=== PATIENT | male | born 1985 | race Caucasian/White ===

== ENCOUNTER 2021-07-04 00:31 | Emergency (ER) | payer OTHER ==
[~2021-07-04 00:31] MED LIST: NAPROSYN500 MG PO; NORFLEX 100 MG100 MG PO; PREDNISONE 50 M50 MG PO
[2021-07-04 01:57] LABS: BUN/CREATININE RATIO 18 (0-10)
[2021-07-04 02:12] LABS: HEMOGLOBIN 15.4 gm/dl (14.0-17.5); RED BLOOD COUNT 5.04 M/UL (4.20-5.50); WHITE BLOOD COUNT 13.9 K/UL (4.5-11.0)
== END 2021-07-04 03:32 | disposition home or self-care (01) ==
LOC: ER1 00:31
PROVIDERS: Student in an Organized Health Care Education/Training Program
DX: K59.00 Constipation, unspecified (principal); F17.200 Nicotine dependence, unspecified, uncomplicated
CPT/HCPCS: 80053; 83690; 85025; 96374; 96375; 99284; J2270; J2405; Q9967